=== PATIENT | male | born 1965 | race Caucasian/White ===

== ENCOUNTER 2018-07-15 14:24 | Emergency (ER) | payer SELFPAY ==
[~2018-07-15] VITALS: Ht 182.9 cm; Wt 79.4 kg
[~2018-07-15 14:24] MED LIST: PENVK500 PO
[2018-07-15] MEDS ORDERED: HYDCOR2.5C PR (17:30)
[2018-07-15] MEDS ORDERED: Colace100 MG PO (17:30)
== END 2018-07-15 17:38 | disposition home or self-care (01) ==
LOC: ER 14:24
DX: K64.4 Residual hemorrhoidal skin tags (principal); F17.200 Nicotine dependence, unspecified, uncomplicated
CPT/HCPCS: 99282

== ENCOUNTER 2020-09-13 20:14 | Observation (INO) | payer OTHER ==
[~2020-09-13] VITALS: Ht 182.9 cm; Wt 88.5 kg
[~2020-09-13 20:14] MED LIST changes: +Colace100 MG PO; +HYDCOR2.5C PR
[2020-09-13 20:48] LABS: BASOPHILS ABSOLUTE AUTO 0.03 K/mm3 (0.00-0.23); BASOPHILS PERCENT AUTO 0 % (0-2); EOSINOPHILS ABSOLUTE AUTO 0.04 K/mm3 (0.00-0.68); EOSINOPHILS PERCENT AUTO 1 % (0-6); Hematocrit 49.2 % (37.0-53.0); Hemoglobin 16.8 g/dL (13.5-17.5); IMMATURE GRAN ABSOLUTE AUTO 0.02 K/mm3 (0.00-0.10); IMMATURE GRAN PERCENT AUTO 0 % (0-1); LYMPHOCYTES PERCENT AUTO 21 % (21-46); MONOCYTES ABSOLUTE AUTO 0.57 K/mm3 (0.16-1.47); MONOCYTES PERCENT AUTO 7 % (4-13); Mean Corpuscular HGB 29.5 pg (26.0-34.0); Mean Corpuscular HGB Conc 34.1 g/dL (31.5-36.5); Mean Corpuscular Volume 87 fL (80-100); Mean Platelet Volume 9.6 fL (9.1-12.4); NEUTROPHILS ABSOLUTE AUTO 5.74 K/mm3 (1.96-9.15); NEUTROPHILS PERCENT AUTO 71 % (41-73); Platelet Count 297 K/mm3 (150-400); RDW Coefficient Variation 12.2 % (11.7-14.2); RDW Standard Deviation 38.8 fL (35.1-46.3); Red Blood Cell Count 5.69 M/mm3 (4.30-5.90)
[2020-09-13 21:11] LABS: Troponin I 0.041 ng/mL (0.000-0.040)
[2020-09-13 21:13] LABS: Alanine Aminotransfer (ALT/SGP 42 U/L (12-78); Albumin/Globulin Ratio 0.9 (0.8-1.8); Alk Phos 105 U/L (50-136); Anion Gap 5 mmol/L (6-16); Aspartate Aminotrans (AST/SGOT 15 U/L (12-37); Bilirubin, Total 0.3 mg/dL (0.1-1.0); Blood Urea Nitrogen 20 mg/dL (8-24); Bun/Creatinine Ratio 19.4 (12.0-20.0); CO2, Blood 31 mmol/L (21-32); Calcium, Blood 10.5 mg/dL (8.5-10.1); Chloride, Blood 100 mmol/L (98-108); Creatinine, Blood 1.03 mg/dL (0.60-1.20); Globulin, Blood 4.3 g/dL (2.2-4.0); Glomerular Filtration Rate >60 (60-); Glucose, Blood 214 mg/dL (70-99); Potassium, Blood 4.1 mmol/L (3.5-5.5); Sodium, Blood 136 mmol/L (136-145); Total Protein, Blood 8.3 g/dL (6.4-8.2)
[2020-09-14 03:36] LABS: Anion Gap 4 mmol/L (6-16); Blood Urea Nitrogen 22 mg/dL (8-24); Bun/Creatinine Ratio 22.2 (12.0-20.0); CO2, Blood 28 mmol/L (21-32); Chloride, Blood 102 mmol/L (98-108); Creatinine, Blood 0.99 mg/dL (0.60-1.20); Glomerular Filtration Rate >60 (60-); Glucose, Blood 271 mg/dL (70-99); Potassium, Blood 4.8 mmol/L (3.5-5.5); Sodium, Blood 134 mmol/L (136-145); Troponin I 0.039 ng/mL (0.000-0.040)
[2020-09-14 07:01] LABS: U Amphetamine Screen Not Detected; U Barbituate Screen Not Detected; U Benzodiazapine Screen Not Detected; U Buprenorphine Screen Not Detected; U Cannabinoids Screen DETECTED; U Cocaine Screen Not Detected; U Methadone Screen Not Detected; U Methamphetamine Screen DETECTED; U Opiates Screen DETECTED; U Oxycodone Screen Not Detected; U Phencyclidine Screen Not Detected; U Propoxyphene Screen Not Detected
--- NOTE | 2020-09-14 08:00 | NUR ---
INITIAL ASSESSMENT: PATIENT IS AWAKE AND SITTING UP IN BED AFTER RETURNING FROM THE BATHROOM. PT STATES HE IS HAVING 7/10 BACK PAIN. HE HAS INTERMITTENT FACIAL GRIMACING, HE EXPLAINS THE PAIN A CRAMPING. DR. GOLDBERG CALLED TO GET ORDERS FOR PAIN MEDICINE, SEE NEW ORDERS. HRR. LS CTA. BT+. PPP. VSS. PT DENIES CP AT THIS TIME. PT DENIES OTHER NEEDS AT THIS TIME. CALL LIGHT IN REACH, WILL CONTINUE TO MONITOR.
--- NOTE | 2020-09-14 09:30 | NUR ---
DR. REED IS HERE TO SEE THE PATIENT. REPORT GIVEN TO ADÁN DIAZ.
--- NOTE | 2020-09-14 12:46 | NUR ---
Assumed care of this Pt this morning at 9 am. He is A/o x 4. He reports a "crick" in his neck and was assisted to re-position with pillows. Dr James was at this bedside this morning and reports that cardio will continue to monitor at this time with no intervention. Pt is able to make his needs known and calls for help when needed.
--- NOTE | 2020-09-14 18:01 | NUR ---
Shift Summary Pt is A/o x 4 with no c/o pain. He does report a stiff neck and was using an ice pack. The flexeril was offered but he said that it didnt help this morning. BPs have improved. Pt has been up to the chair for meals. He is visiting with a friend now and eating dinner. His CBGS have been elevated and has been covered with sliding scale. Pt makes his needs known and calls when needed.
--- NOTE | 2020-09-15 05:23 | NUR ---
SHIFT SUMMARY PATIENT IS ALERT AND ORIENTED X4. INDEPENDENT IN ROOM. MEDICATED PATIENT FOR SEVER NECK/SHOULDER PAIN PER EMAR. FENTANYL SEEMS TO MAKE THE PATIENT NAUSEOUS, PATIENT VOMITTED, ZOFRAN GIVEN AND PATIENT NOW RESTING. 02 SATS >95% ON RA. VSS, NO ACUTE CHANGES, CALL LIGHT IN REACH.
[2020-09-15] MEDS ORDERED: CLON.1 PO (11:19)
[2020-09-15] MEDS ORDERED: CYCL10 PO (11:20)
[2020-09-15] MEDS ORDERED: LISI20 PO (11:21)
[2020-09-15] MEDS ORDERED: OXYC5 PO (11:22)
--- NOTE | 2020-09-15 11:44 | NUR ---
PT DISHCARGE PT'S MEDICATIONS FAXED TO PREFERRED PHARMACY. PT'S HARD COPY OF PAIN MEDICATIONS PROVIDED IN DISCHARGE PACKET. PT PROVIDED WITH EDUCATION REGARDING NEW MEDICATIONS AND FOLLOW UP APT DATES. PT ANXIOUS AND WANTING TO LEAVE [facility]. IV REMOVED. TELE REMOVED. PT'S VS STABLE. PT BROUGHT BY WHEELCHAIR TO [facility] WITH ALL BELONGINGS BY JACKER FEEDER.
== END 2020-09-15 11:39 | disposition home or self-care (01) ==
LOC: ER 20:14 → PCU 20:15 → ERHOLD 20:15 → PCU 09-14 02:24
PROVIDERS: Physician Assistant; ADMIT Family Medicine
DX: I16.0 Hypertensive urgency (principal); I16.1 Hypertensive emergency; R91.8 Other nonspecific abnormal finding of lung field; I21.4 Non-ST elevation (NSTEMI) myocardial infarction; M25.511 Pain in right shoulder; I11.9 Hypertensive heart disease without heart failure; R07.89 Other chest pain; E11.9 Type 2 diabetes mellitus without complications; F12.11 Cannabis abuse, in remission; F15.11 Other stimulant abuse, in remission; R79.89 Other specified abnormal findings of blood chemistry; F17.210 Nicotine dependence, cigarettes, uncomplicated; M54.9 Dorsalgia, unspecified; G89.29 Other chronic pain; K21.9 Gastro-esophageal reflux disease without esophagitis; M47.815 Spondylosis without myelopathy or radiculopathy, thoracolumbar region; K40.90 Unilateral inguinal hernia, without obstruction or gangrene, not specified as recurrent; M50.322 Other cervical disc degeneration at C5-C6 level
CPT/HCPCS: 36415; 71275; 74175; 80048; 80053; 82947; 83036; 83690; 84484; 85025; 93005; 93010; 93306; 96372; 96374; 96375; 96376; 99285-25; A9270; G0378; J0360; J1644; J1815; J2270; J2405; J3010; Q9967

== ENCOUNTER 2021-04-30 04:05 | Observation (INO) | payer OTHER ==
[~2021-04-30] VITALS: Ht 180.3 cm; Wt 70.9 kg
[~2021-04-30 04:05] MED LIST changes: +CLON.1 PO; +CYCL10 PO; +LISI20 PO; +OXYC5 PO
[2021-04-30 04:36] LABS: BASOPHILS ABSOLUTE AUTO 0.04 K/mm3 (0.00-0.23); BASOPHILS PERCENT AUTO 0 % (0-2); EOSINOPHILS ABSOLUTE AUTO 0.03 K/mm3 (0.00-0.68); EOSINOPHILS PERCENT AUTO 0 % (0-6); Hematocrit 45.4 % (37.0-53.0); Hemoglobin 15.3 g/dL (13.5-17.5); IMMATURE GRAN ABSOLUTE AUTO 0.01 K/mm3 (0.00-0.10); IMMATURE GRAN PERCENT AUTO 0 % (0-1); LYMPHOCYTES ABSOLUTE AUTO 1.37 K/mm3 (0.84-5.20); LYMPHOCYTES PERCENT AUTO 13 % (21-46); MONOCYTES ABSOLUTE AUTO 0.56 K/mm3 (0.16-1.47); MONOCYTES PERCENT AUTO 5 % (4-13); Mean Corpuscular HGB 29.4 pg (26.0-34.0); Mean Corpuscular HGB Conc 33.7 g/dL (31.5-36.5); Mean Corpuscular Volume 87 fL (80-100); Mean Platelet Volume 10.3 fL (9.1-12.4); NEUTROPHILS ABSOLUTE AUTO 8.38 K/mm3 (1.96-9.15); NEUTROPHILS PERCENT AUTO 81 % (41-73); Platelet Count 320 K/mm3 (150-400); RDW Coefficient Variation 12.2 % (11.7-14.2); RDW Standard Deviation 39.6 fL (35.1-46.3); White Blood Cell Count 10.39 K/mm3 (4.00-11.30)
[2021-04-30 04:53] LABS: Alanine Aminotransfer (ALT/SGP 21 U/L (12-78); Albumin, Blood 3.6 g/dL (3.4-5.0); Albumin/Globulin Ratio 0.9 (0.8-1.8); Alk Phos 99 U/L (50-136); Anion Gap 7 mmol/L (6-16); Aspartate Aminotrans (AST/SGOT 13 U/L (12-37); Bilirubin, Total 0.7 mg/dL (0.1-1.0); Blood Urea Nitrogen 18 mg/dL (8-24); Bun/Creatinine Ratio 19.4 (12.0-20.0); CO2, Blood 27 mmol/L (21-32); Calcium, Blood 9.5 mg/dL (8.5-10.1); Chloride, Blood 103 mmol/L (98-108); Creatinine, Blood 0.93 mg/dL (0.60-1.20); Globulin, Blood 4.1 g/dL (2.2-4.0); Glomerular Filtration Rate >60 (60-); Glucose, Blood 217 mg/dL (70-99); Potassium, Blood 3.9 mmol/L (3.5-5.5); Sodium, Blood 137 mmol/L (136-145); Total Protein, Blood 7.7 g/dL (6.4-8.2)
[2021-04-30 06:15] LABS: CHOL/HDL RATIO 3.2; Cholesterol 167 mg/dL (50-200); HDL Cholesterol 52 mg/dL (>39); LDL/HDL RATIO 1.9; Low Density Lipoprotein Chol 101 mg/dL (0-110); Triglycerides 71 mg/dL (30-160); Very Low Density Lipoprot Chol 14 mg/dL (6-32)
[2021-04-30 06:35] LABS: International Normalized Ratio 1.03; Prothrombin Time Results 10.8 Sec (9.7-11.5)
--- NOTE | 2021-04-30 08:00 | NUR ---
ICU ADMISSION: PT ARRIVES ADMIT FROM THE ED. OVER THE PAST x2 DAYS, PT REPORTED WORSENING MID STERNAL CP W/OUT KNOWN PRECIPITATING EVENT. YESTERDAY, HE BEGAN TO HAVE SOB & N/V WHICH PROMPTED HIS ARRIVAL TO THE ED. HE WAS GIVEN 325mg ASA & INTRANASAL NITRO EN ROUTE & UPON ARRIVAL, HIS CP HAD RESOLVED. TROP ELEVATED & PT ADMITTED NONSTEMI, PCU STATUS. UPON ARRIVAL TO ICU, PT IS SPEAKING IN FULL SENTENCES, RR EVEN & UNLABORED. APPROPRIATE & PARTICIPATES IN ASSESSMENTS. CONT MILLER HEAD ASSISTANT WET PROCESS INDICATES A SINUS RHYTHM W/ LBBB, RATE 70s. PT DENIES ANY CP. HEPARIN BOLUS GIVEN & gtt STARTED @ 15u/kg/hr. MILLER HEAD ASSISTANT WET PROCESS APPEARED TO HAVE NEW ST ELEVATION. EKG OBTAINED & APPEARED SIMILIAR & UNCHANGED FROM PREVIOUS & W/OUT ST ELEVATION. CARDIO, MAKENZIE, CONSULTED; AWAITING HER ARRIVAL TO DICTATE FURTHER PLAN OF CARE. PT IS AGREEABLE & QUICKLY FALLS ASLEEP WHEN UNDISTURBED.
--- NOTE | 2021-04-30 09:36 | NUR ---
UPDATE: PT ADDS HE HAS AN EXTENSIVE Hx OF HTN & ANGINA BUT DOES NOT TAKE ANY OF THE Rx'd MEDS @ HOME D/T SIDE EFFECTS OF FEELING "SHITTY". HOWEVER PT STS, 1wk AGO HIS BROTHER FROM HEART DISEASE & HE IS MORE RECEPTIVE NOW TO TAKING MEDS & QUITTING SMOKING. EDUCATED PT ON THE IMPORTANCE OF TAKING MEDS Rx'd & DISCUSSING SIDE EFFECTS W/ PCP IN ORDER TO FIND THE BEST MEDICATIONS & DOSE FOR HIM. UNDERSTANDING VERB. PT APPEARS RECEPTIVE & ASKS QUESTIONS, QUESTIONS ANSWERED. HE DOES STATE EXPLICITLY THAT HE DOES NOT WANT TO BE RESUSCITATED BECAUSE HE DOES NOT WANT TO BE BROUGHT BACK "HALF ALIVE" & HAVE A POOR QUALITY OF LIFE. DNR BAND PLACE ON L WRIST, ON DOOR, & IN CHART. EHR MATCHES CODE STATUS.
--- NOTE | 2021-04-30 13:20 | NUR ---
UPDATE: MECHANICAL APPRENTICE EVAL & PLAN FOR DC HOME DR BANEGAS @ BEDSIDE FOR INITIAL EVAL. PT CONTINUES TO REMAIN FREE OF CP OR SOB. HR 70s, NSR. PT AGREES TO F/U OUTPATIENT FOR STRESS TEST. MD EDUCATED PT ON THE IMPORTANCE OF RETURNING FOR F/U & BEING COMPLIANT W/ MEDS, PT AGREES. MAKENZIE BELIEVES THE PT CAN BE DC'd HOME TODAY. VERBAL ORDERS GIVEN TO DC HEPARIN GTT. PLAN TO KEEP PT OBS THIS AFTERNOON & DC HOME AFTER PTT CONFIRMED TO BE TRENDING DOWNWARDS.
--- NOTE | 2021-04-30 15:54 | NUR ---
SPOKE W/ CARRIE BANEGAS TO DRAW PTT NOW & IF IT IS NML OR CLOSE TO NML, PT WILL BE ABLE TO BE DC HOME. ORDER PLACED, AWAITING SLASHER OPERATOR ARRIVAL. PT CONTINUES TO REMAIN FREE OF CP & HAS BEEN ABLE TO BE INDEPENDENT IN THE ROOM.
[2021-04-30] MEDS ORDERED: NITR.4SL (17:08)
[2021-04-30] MEDS ORDERED: TAMSULOSIN HCL0.4 M1 PO (17:10)
[2021-04-30] MEDS ORDERED: ATOR40TA PO (17:11)
[2021-04-30] MEDS ORDERED: Isosorbide Mono30 MG PO (17:11)
[2021-04-30] MEDS ORDERED: ASPI81CH PO (17:11)
[2021-04-30] MEDS ORDERED: METF500 PO (17:12)
[2021-04-30] MEDS ORDERED: Prinivil10 MG PO (17:12)
--- NOTE | 2021-04-30 17:45 | NUR ---
UPDATE: PT DC HOME. PT GIVEN THOROUGH WRITTEN & VERBAL DC INSTRUCTIONS ON THE IMPORTANCE OF DIET, MED COMPLIANCE, & FOLLOWING UP W/ PCP. OPPORTUNITY PROVIDED FOR QUESTIONS & QUESTIONS ANSWERED. PT VERB UNDERSTANDING & DENIES ANY UNMET NEEDS. IV DC'd. ESCORTED TO [facility] W/OUT INCIDENT. BERNARD.
== END 2021-04-30 17:45 | disposition home or self-care (01) ==
LOC: ER 04:05 → PCU 04:06 → ICUE 04:06
PROVIDERS: Student in an Organized Health Care Education/Training Program; ADMIT Family Medicine
DX: R07.2 Precordial pain (principal); I44.7 Left bundle-branch block, unspecified; I10 Essential (primary) hypertension; F17.210 Nicotine dependence, cigarettes, uncomplicated; F15.10 Other stimulant abuse, uncomplicated; E11.9 Type 2 diabetes mellitus without complications; K21.9 Gastro-esophageal reflux disease without esophagitis; Z91.14 Patient's other noncompliance with medication regimen; Z66 Do not resuscitate
CPT/HCPCS: 36415; 71045; 80053; 80061; 82947; 83690; 84484; 85025; 85520; 85610; 85730; 93005; 93010; 96376; A9270; G0378; J1644; J1815; J2405

== ENCOUNTER 2021-07-22 09:38 | Emergency (ER) | payer OTHER ==
[~2021-07-22] VITALS: Ht 180.3 cm; Wt 72.6 kg
[~2021-07-22 09:38] MED LIST changes: +ASPI81CH PO; +ATOR40TA PO; +Isosorbide Mono30 MG PO; +METF500 PO; +METO25 PO; +NITR.4SL SL; +Nicoderm Cq1 EAC1 TOP; +PANT40 PO; +Prinivil10 MG PO; +TAMSULOSIN HCL0.4 M1 PO
[2021-07-22 10:25] LABS: BASOPHILS ABSOLUTE AUTO 0.05 K/mm3 (0.00-0.23); BASOPHILS PERCENT AUTO 0 % (0-2); EOSINOPHILS ABSOLUTE AUTO 0.01 K/mm3 (0.00-0.68); EOSINOPHILS PERCENT AUTO 0 % (0-6); Hematocrit 52.7 % (37.0-53.0); Hemoglobin 17.7 g/dL (13.5-17.5); IMMATURE GRAN ABSOLUTE AUTO 0.03 K/mm3 (0.00-0.10); IMMATURE GRAN PERCENT AUTO 0 % (0-1); LYMPHOCYTES ABSOLUTE AUTO 1.41 K/mm3 (0.84-5.20); LYMPHOCYTES PERCENT AUTO 12 % (21-46); MONOCYTES PERCENT AUTO 5 % (4-13); Mean Corpuscular HGB 29.6 pg (26.0-34.0); Mean Corpuscular HGB Conc 33.6 g/dL (31.5-36.5); Mean Corpuscular Volume 88 fL (80-100); Mean Platelet Volume 9.9 fL (9.1-12.4); NEUTROPHILS ABSOLUTE AUTO 9.67 K/mm3 (1.96-9.15); NEUTROPHILS PERCENT AUTO 82 % (41-73); Platelet Count 338 K/mm3 (150-400); RDW Coefficient Variation 12.4 % (11.7-14.2); RDW Standard Deviation 40.4 fL (35.1-46.3); Red Blood Cell Count 5.98 M/mm3 (4.30-5.90); White Blood Cell Count 11.77 K/mm3 (4.00-11.30)
[2021-07-22 10:41] LABS: Alanine Aminotransfer (ALT/SGP 28 U/L (12-78); Albumin, Blood 3.9 g/dL (3.4-5.0); Albumin/Globulin Ratio 0.9 (0.8-1.8); Alk Phos 111 U/L (50-136); Anion Gap 7 mmol/L (6-16); Aspartate Aminotrans (AST/SGOT 12 U/L (12-37); Bilirubin, Total 0.7 mg/dL (0.1-1.0); Blood Urea Nitrogen 23 mg/dL (8-24); Bun/Creatinine Ratio 29.7 (12.0-20.0); CO2, Blood 29 mmol/L (21-32); Calcium, Blood 9.4 mg/dL (8.5-10.1); Chloride, Blood 99 mmol/L (98-108); Creatinine, Blood 0.78 mg/dL (0.60-1.20); Globulin, Blood 4.2 g/dL (2.2-4.0); Glomerular Filtration Rate >60 (60-); Glucose, Blood 181 mg/dL (70-99); Potassium, Blood 4.5 mmol/L (3.5-5.5); Sodium, Blood 135 mmol/L (136-145); Total Protein, Blood 8.1 g/dL (6.4-8.2)
[2021-07-22 11:29] LABS: Source, Urine Clean Catch
[2021-07-22 11:49] LABS: Appearance, Urine Clear (Clear); Bilirubin, Urine Neg (Neg); Blood, Urine Neg (Neg); Color, Urine Yellow (P-Yellow); Glucose Qualitative, Urine Neg (Neg); Ketones, Urine 4+ (Neg); Leukocyte Esterase, Urine Neg (Neg); Nitrite, Urine Neg (Neg); Protein, Urine 3+ (Neg); Urobilinogen, Urine 1+ (Normal)
[2021-07-22 12:12] LABS: U Amphetamine Screen DETECTED; U Barbituate Screen Not Detected; U Benzodiazapine Screen Not Detected; U Buprenorphine Screen Not Detected; U Cannabinoids Screen DETECTED; U Cocaine Screen Not Detected; U Methadone Screen Not Detected; U Methamphetamine Screen DETECTED; U Opiates Screen Not Detected; U Oxycodone Screen Not Detected; U Phencyclidine Screen Not Detected; U Propoxyphene Screen Not Detected
[2021-07-22 12:18] LABS: Bacteria Not Seen /hpf; Red Blood Cells, Urine 0-2 /hpf (0-2); Squamous Epithelial Cells Rare /hpf (Few); White Blood Cells, Urine 0-2 /hpf (0-5)
== END 2021-07-22 13:02 | disposition home or self-care (01) ==
LOC: ER 09:38
PROVIDERS: Emergency Medicine
DX: K29.90 Gastroduodenitis, unspecified, without bleeding (principal); F15.90 Other stimulant use, unspecified, uncomplicated; I10 Essential (primary) hypertension; E11.9 Type 2 diabetes mellitus without complications; E78.5 Hyperlipidemia, unspecified; F17.210 Nicotine dependence, cigarettes, uncomplicated; Z79.82 Long term (current) use of aspirin; Z79.899 Other long term (current) drug therapy; Z79.84 Long term (current) use of oral hypoglycemic drugs
CPT/HCPCS: 36415; 71045; 74177; 80053; 81001; 83690; 84484; 85025; 93005; 93010; C9113; J1170; J2405; J7030; Q9967

== ENCOUNTER 2023-03-10 15:26 | Emergency (ER) | payer OTHER ==
[~2023-03-10] VITALS: Ht 177.8 cm; Wt 81.7 kg
[2023-03-10 15:42] LABS: BASOPHILS ABSOLUTE AUTO 0.04 K/mm3 (0.00-0.23); BASOPHILS PERCENT AUTO 1 % (0-2); EOSINOPHILS ABSOLUTE AUTO 0.12 K/mm3 (0.00-0.68); EOSINOPHILS PERCENT AUTO 2 % (0-6); Hematocrit 44.2 % (37.0-53.0); Hemoglobin 15.4 g/dL (13.5-17.5); IMMATURE GRAN ABSOLUTE AUTO 0.02 K/mm3 (0.00-0.10); IMMATURE GRAN PERCENT AUTO 0 % (0-1); LYMPHOCYTES ABSOLUTE AUTO 2.07 K/mm3 (0.84-5.20); LYMPHOCYTES PERCENT AUTO 26 % (21-46); MONOCYTES ABSOLUTE AUTO 0.45 K/mm3 (0.16-1.47); MONOCYTES PERCENT AUTO 6 % (4-13); Mean Corpuscular HGB 29.8 pg (26.0-34.0); Mean Corpuscular HGB Conc 34.8 g/dL (31.5-36.5); Mean Corpuscular Volume 86 fL (80-100); Mean Platelet Volume 9.9 fL (9.1-12.4); NEUTROPHILS ABSOLUTE AUTO 5.23 K/mm3 (1.96-9.15); NEUTROPHILS PERCENT AUTO 66 % (41-73); Platelet Count 286 K/mm3 (150-400); RDW Coefficient Variation 11.9 % (11.7-14.2); RDW Standard Deviation 37.1 fL (35.1-46.3); Red Blood Cell Count 5.17 M/mm3 (4.30-5.90); White Blood Cell Count 7.93 K/mm3 (4.00-11.30)
[2023-03-10 16:00] LABS: Albumin, Blood 3.6 g/dL (3.4-5.0); Bilirubin, Total 0.6 mg/dL (0.1-1.0); Bun/Creatinine Ratio 20.8 (12.0-20.0); Creatinine, Blood 0.82 mg/dL (0.60-1.20); Globulin, Blood 3.7 g/dL (2.2-4.0); Potassium, Blood 3.9 mmol/L (3.5-5.5); Total Protein, Blood 7.3 g/dL (6.4-8.2)
[2023-03-10 17:00] VITALS: BP 180/106
[2023-03-10] MEDS ORDERED: ONDA4ODT MM (17:05)
[2023-03-10] MEDS ORDERED: Pepcid40 MG PO (17:05)
== END 2023-03-10 17:11 | disposition home or self-care (01) ==
LOC: ER 15:26
PROVIDERS: Emergency Medicine
DX: R10.11 Right upper quadrant pain (principal); I10 Essential (primary) hypertension; E11.9 Type 2 diabetes mellitus without complications; E78.5 Hyperlipidemia, unspecified; F15.10 Other stimulant abuse, uncomplicated; N40.0 Benign prostatic hyperplasia without lower urinary tract symptoms; Z87.19 Personal history of other diseases of the digestive system; F17.210 Nicotine dependence, cigarettes, uncomplicated
CPT/HCPCS: 80053; 83690; 85025; 93005; 93010; 99284-25; J1885; J2405

== ENCOUNTER 2023-04-06 23:16 | Inpatient (IN) | payer OTHER ==
[~2023-04-06] VITALS: Ht 182.9 cm; Wt 72.7 kg
[~2023-04-06 23:16] MED LIST changes: +ONDA4ODT MM; +Pepcid40 MG PO
[2023-04-07 00:01] LABS: BASOPHILS ABSOLUTE AUTO 0.05 K/mm3 (0.00-0.23); BASOPHILS PERCENT AUTO 1 % (0-2); EOSINOPHILS ABSOLUTE AUTO 0.16 K/mm3 (0.00-0.68); EOSINOPHILS PERCENT AUTO 2 % (0-6); Hematocrit 43.6 % (37.0-53.0); Hemoglobin 15.1 g/dL (13.5-17.5); IMMATURE GRAN ABSOLUTE AUTO 0.03 K/mm3 (0.00-0.10); IMMATURE GRAN PERCENT AUTO 0 % (0-1); LYMPHOCYTES ABSOLUTE AUTO 2.07 K/mm3 (0.84-5.20); LYMPHOCYTES PERCENT AUTO 21 % (21-46); MONOCYTES ABSOLUTE AUTO 0.66 K/mm3 (0.16-1.47); MONOCYTES PERCENT AUTO 7 % (4-13); Mean Corpuscular HGB 29.7 pg (26.0-34.0); Mean Corpuscular HGB Conc 34.6 g/dL (31.5-36.5); Mean Corpuscular Volume 86 fL (80-100); Mean Platelet Volume 9.8 fL (9.1-12.4); NEUTROPHILS ABSOLUTE AUTO 7.15 K/mm3 (1.96-9.15); NEUTROPHILS PERCENT AUTO 71 % (41-73); Platelet Count 289 K/mm3 (150-400); RDW Standard Deviation 37.8 fL (35.1-46.3); Red Blood Cell Count 5.09 M/mm3 (4.30-5.90); White Blood Cell Count 10.12 K/mm3 (4.00-11.30)
[2023-04-07 00:20] LABS: Albumin, Blood 3.7 g/dL (3.4-5.0); Bilirubin, Total 0.5 mg/dL (0.1-1.0); Bun/Creatinine Ratio 28.1 (12.0-20.0); Calcium, Blood 9.8 mg/dL (8.5-10.1); Creatinine, Blood 0.89 mg/dL (0.60-1.20); Globulin, Blood 3.8 g/dL (2.2-4.0); Total Protein, Blood 7.5 g/dL (6.4-8.2)
[2023-04-07 03:49] LABS: CHOL/HDL RATIO 3.8; Cholesterol 184 mg/dL (50-200); HDL Cholesterol 48 mg/dL (>39); LDL/HDL RATIO 2.3; Low Density Lipoprotein Chol 113 mg/dL (0-110); Triglycerides 117 mg/dL (30-160); Very Low Density Lipoprot Chol 23 mg/dL (6-32)
[2023-04-07 07:18] VITALS: BP 157/84
--- NOTE | 2023-04-07 07:41 | NUR ---
LAB CALLED WITH A CRITICAL VALUE OF A TROPONIN OF 213, PREVIOUSLY 192, AND 218 PRIOR TO THAT. CALL AND REPORTED RESULT TO DR. RAMOS. NO NEW ORDERS GIVEN OVER THE PHONE.
[2023-04-07 07:58] LABS: Source, Urine Clean Catch
[2023-04-07 08:04] LABS: Bilirubin, Urine Neg (Neg); Blood, Urine Neg (Neg); Glucose Qualitative, Urine 4+ (Neg); Ketones, Urine 1+ (Neg); Leukocyte Esterase, Urine Neg (Neg); Nitrite, Urine Neg (Neg); Protein, Urine 2+ (Neg); Urobilinogen, Urine NORM (Normal)
[2023-04-07 08:11] LABS: Appearance, Urine Clear (Clear); Color, Urine Yellow (P-Yellow)
[2023-04-07 08:16] LABS: Bacteria Rare /hpf; Red Blood Cells, Urine 0-2 /hpf (0-2); Squamous Epithelial Cells Rare /hpf (Few); White Blood Cells, Urine 0-2 /hpf (0-5)
--- NOTE | 2023-04-07 08:28 | NUR ---
TELEMETRY CALLED AT [address] ELEVATION OF 3.9 PATIENT IS ASYMPTOMATIC (NO SOB OR CHEST PAIN) EKG WAS PERFORMED AND COMPARED TO PREVIOUS. RESULTS REPORTED TO DR. RAMOS.
--- NOTE | 2023-04-07 11:18 | NUR ---
LAB CALLED WITH CRITICAL RESULTS: TROPONIN OF 200; PREVIOUSLY 213. CALL AND NOTIFIED
[2023-04-07 16:14] VITALS: BP 129/82
[2023-04-07] MEDS ORDERED: BUPR150ER PO (17:52)
[2023-04-07] MEDS ORDERED: STEGLATRO5 MG PO (17:52)
[2023-04-07] MEDS ORDERED: METO25ER PO (17:53)
[2023-04-07] MEDS ORDERED: Naltrexone HCl50 MG PO (17:53)
[2023-04-07] MEDS ORDERED: LOSA25 PO (17:53)
--- NOTE | 2023-04-07 18:27 | NUR ---
DISCHARGE NOTE: DISCHARGE DISCUSSED WITH PATIENT BY MD AND RN AT BEDSIDE. DISCHARGE PAPERWORK AND SUPPLIES TO OBTAIN STOOL TEST PROVIDED. QUESTIONS AND CONCERNS ANSWERED. IV AND TELEMETRY REMOVED. PATIENT GOT DRESSED AND COLLECTED HIS OWN BELONGINGS AND WALKOUT OUT OF UNIT WITH STAFF. NO SIGNS OR SYMPTOMS OF DISTRESS DURING DISCHARGE.
== END 2023-04-07 18:19 | disposition home or self-care (01) | DRG 391 ==
LOC: ER 23:16 → MEDS 04-07 03:26
PROVIDERS: Emergency Medicine; Family Medicine; ADMIT Student in an Organized Health Care Education/Training Program
DX: K29.80 Duodenitis without bleeding (principal); I21.A1 Myocardial infarction type 2; I50.22 Chronic systolic (congestive) heart failure; E11.9 Type 2 diabetes mellitus without complications; Z66 Do not resuscitate; Q63.2 Ectopic kidney; F15.10 Other stimulant abuse, uncomplicated; F17.210 Nicotine dependence, cigarettes, uncomplicated; I11.0 Hypertensive heart disease with heart failure; N40.0 Benign prostatic hyperplasia without lower urinary tract symptoms; K29.70 Gastritis, unspecified, without bleeding; E78.5 Hyperlipidemia, unspecified; I44.7 Left bundle-branch block, unspecified; R94.31 Abnormal electrocardiogram [ECG] [EKG]; Z91.148 Patient's other noncompliance with medication regimen for other reason; Z79.899 Other long term (current) drug therapy; Z90.89 Acquired absence of other organs
CPT/HCPCS: 36415; 71045; 71275; 74177; 76705; 80053; 80061; 81001; 82947; 83036; 83690; 83735; 83880; 84484; 85025; 93005; 93010; 93306; 94762; 96361; 96374-59; 96375-59; 99285-25; A9270; J1650; J2270; J2405; J7030; Q9967

== ENCOUNTER → 2023-04-09 | Outpatient (CLI) | payer OTHER ==
[~2023-04-09] MED LIST changes: +BUPR150ER PO; +LOSA25 PO; +METO25ER PO; +Naltrexone HCl50 MG PO; +STEGLATRO5 MG PO; +SUCR1 PO
== END | disposition home or self-care (01) ==
LOC: LAB SHORT 14:08 → LAB 14:08
DX: K29.80 Duodenitis without bleeding (principal)
CPT/HCPCS: 87338

== ENCOUNTER 2023-04-10 19:02 | Emergency (ER) | payer OTHER ==
[~2023-04-10] VITALS: Ht 180.3 cm; Wt 71.2 kg
[~2023-04-10 19:02] MED LIST changes: -SUCR1 PO
[2023-04-10 19:28] LABS: BASOPHILS ABSOLUTE AUTO 0.07 K/mm3 (0.00-0.23); BASOPHILS PERCENT AUTO 1 % (0-2); EOSINOPHILS ABSOLUTE AUTO 0.13 K/mm3 (0.00-0.68); EOSINOPHILS PERCENT AUTO 2 % (0-6); Hematocrit 42.4 % (37.0-53.0); Hemoglobin 14.7 g/dL (13.5-17.5); IMMATURE GRAN ABSOLUTE AUTO 0.02 K/mm3 (0.00-0.10); IMMATURE GRAN PERCENT AUTO 0 % (0-1); LYMPHOCYTES ABSOLUTE AUTO 1.57 K/mm3 (0.84-5.20); LYMPHOCYTES PERCENT AUTO 20 % (21-46); MONOCYTES ABSOLUTE AUTO 0.58 K/mm3 (0.16-1.47); MONOCYTES PERCENT AUTO 7 % (4-13); Mean Corpuscular HGB 29.5 pg (26.0-34.0); Mean Corpuscular HGB Conc 34.7 g/dL (31.5-36.5); Mean Corpuscular Volume 85 fL (80-100); NEUTROPHILS PERCENT AUTO 71 % (41-73); Platelet Count 308 K/mm3 (150-400); RDW Coefficient Variation 12.2 % (11.7-14.2); RDW Standard Deviation 37.6 fL (35.1-46.3); Red Blood Cell Count 4.98 M/mm3 (4.30-5.90); White Blood Cell Count 8.07 K/mm3 (4.00-11.30)
[2023-04-10 19:53] LABS: Albumin, Blood 3.6 g/dL (3.4-5.0); Bilirubin, Total 0.3 mg/dL (0.1-1.0); Calcium, Blood 9.6 mg/dL (8.5-10.1); Creatinine, Blood 0.92 mg/dL (0.60-1.20); Globulin, Blood 3.7 g/dL (2.2-4.0); Potassium, Blood 3.9 mmol/L (3.5-5.5); Total Protein, Blood 7.3 g/dL (6.4-8.2)
[2023-04-10] MEDS ORDERED: PANT40 PO (22:30)
[2023-04-10] MEDS ORDERED: SUCR1 PO (22:30)
[2023-04-10 22:46] VITALS: BP 150/92
== END 2023-04-10 22:40 | disposition home or self-care (01) ==
LOC: ER 19:02
PROVIDERS: Emergency Medicine
DX: K29.80 Duodenitis without bleeding (principal); R07.9 Chest pain, unspecified; R79.89 Other specified abnormal findings of blood chemistry; F15.10 Other stimulant abuse, uncomplicated; E11.9 Type 2 diabetes mellitus without complications; I10 Essential (primary) hypertension; E78.5 Hyperlipidemia, unspecified; F17.210 Nicotine dependence, cigarettes, uncomplicated; Z79.84 Long term (current) use of oral hypoglycemic drugs; Z79.899 Other long term (current) drug therapy
CPT/HCPCS: 71045; 80053; 83690; 84484; 85025; 93005; 93010; 99285-25; A9270; C9113

== ENCOUNTER 2024-06-29 12:59 | Observation (INO) | payer OTHER ==
[~2024-06-29] VITALS: Ht 180.3 cm; Wt 74.8 kg
[~2024-06-29 12:59] MED LIST changes: +SUCR1 PO
[2024-06-29 14:49] LABS: Base Excess Venous 3.1 mmol/L; Bicarbonate Venous 26.7 mmol/L (24.0-30.0); PCO2 Venous 40.8 mmHg (38-42); pH Blood Venous 7.43 (7.34-7.37)
[2024-06-29 14:56] LABS: BASOPHILS ABSOLUTE AUTO 0.03 K/mm3 (0.00-0.23); BASOPHILS PERCENT AUTO 0 % (0-2); EOSINOPHILS ABSOLUTE AUTO 0.05 K/mm3 (0.00-0.68); EOSINOPHILS PERCENT AUTO 1 % (0-6); Hematocrit 40.3 % (37.0-53.0); Hemoglobin 13.9 g/dL (13.5-17.5); IMMATURE GRAN ABSOLUTE AUTO 0.03 K/mm3 (0.00-0.10); IMMATURE GRAN PERCENT AUTO 0 % (0-1); LYMPHOCYTES ABSOLUTE AUTO 1.02 K/mm3 (0.84-5.20); LYMPHOCYTES PERCENT AUTO 15 % (21-46); MONOCYTES ABSOLUTE AUTO 0.59 K/mm3 (0.16-1.47); MONOCYTES PERCENT AUTO 9 % (4-13); Mean Corpuscular HGB Conc 34.5 g/dL (31.5-36.5); Mean Corpuscular Volume 87 fL (80-100); Mean Platelet Volume 11.1 fL (9.1-12.4); NEUTROPHILS ABSOLUTE AUTO 4.95 K/mm3 (1.96-9.15); NEUTROPHILS PERCENT AUTO 74 % (41-73); Platelet Count 189 K/mm3 (150-400); RDW Coefficient Variation 12.4 % (11.7-14.2); RDW Standard Deviation 39.3 fL (35.1-46.3); Red Blood Cell Count 4.63 M/mm3 (4.30-5.90); White Blood Cell Count 6.67 K/mm3 (4.00-11.30)
[2024-06-29 15:32] LABS: Beta-hydroxybutyrate 2.1 mg/dL (0.2-2.8)
[2024-06-29 15:57] LABS: Albumin, Blood 3.3 g/dL (3.4-5.0); Albumin/Globulin Ratio 0.9 (0.8-1.8); Bilirubin, Total 0.3 mg/dL (0.1-1.0); Bun/Creatinine Ratio 30.5 (12.0-20.0); Calcium, Blood 8.5 mg/dL (8.5-10.1); Creatinine, Blood 0.85 mg/dL (0.60-1.20); Globulin, Blood 3.5 g/dL (2.2-4.0); Potassium, Blood 4.8 mmol/L (3.5-5.5); Total Protein, Blood 6.8 g/dL (6.4-8.2)
[2024-06-29] MEDS ORDERED: Insulin Human Regular 100 UNIT in NS 100 ML IV SCH (17:15)
[2024-06-29] MEDS ORDERED: NS 1,000 ML IV SCH (17:20)
[2024-06-29] MEDS ORDERED: Ondansetron HCl 2 MG / ML 2ML Vial IV PRN (17:40)
[2024-06-29] MEDS ORDERED: NS 1,000 ML IV ONE (17:45)
[2024-06-29 17:51] LABS: Source, Urine Clean Catch
[2024-06-29] MEDS ORDERED: Enoxaparin 40 MG/0.4 ML SYR SC SCH (18:00)
[2024-06-29 18:08] LABS: Appearance, Urine Clear (Clear); Bilirubin, Urine Neg (Neg); Blood, Urine Neg (Neg); Glucose Qualitative, Urine 4+ (Neg); Ketones, Urine Neg (Neg); Leukocyte Esterase, Urine Neg (Neg); Nitrite, Urine Neg (Neg); Protein, Urine Neg (Neg); Urobilinogen, Urine NORM (Normal)
[2024-06-29 18:40] LABS: Bun/Creatinine Ratio 28.6 (12.0-20.0); Calcium, Blood 8.4 mg/dL (8.5-10.1); Creatinine, Blood 0.77 mg/dL (0.60-1.20); Potassium, Blood 4.7 mmol/L (3.5-5.5)
[2024-06-29] MEDS ORDERED: Aspir 8181 MG PO (19:04)
[2024-06-29] MEDS ORDERED: INSULIN GL300 UNIT/1 SC (19:05)
[2024-06-29 19:09] LABS: Color, Urine Pale Yellow (P-Yellow)
[2024-06-29 19:31] LABS: Glucose, Blood 608 mg/dL (70-99)
[2024-06-29 20:14] LABS: Bun/Creatinine Ratio 25.1 (12.0-20.0); Calcium, Blood 8.2 mg/dL (8.5-10.1); Creatinine, Blood 0.84 mg/dL (0.60-1.20); Potassium, Blood 3.9 mmol/L (3.5-5.5)
[2024-06-29] MEDS ORDERED: Potassium Chl 20MEQ/Water100ML 100 ML IV ONE (20:30)
[2024-06-29] MEDS ORDERED: Insulin Glargine-Yfgn 100 Unit/mL 3 ML SYR SC SCH (23:00)
[2024-06-29 23:51] VITALS: BP 135/86
[2024-06-30 00:52] LABS: Bun/Creatinine Ratio 29.6 (12.0-20.0); Calcium, Blood 8.4 mg/dL (8.5-10.1); Creatinine, Blood 0.81 mg/dL (0.60-1.20); Potassium, Blood 4.2 mmol/L (3.5-5.5)
[2024-06-30 01:34] VITALS: BP 169/94
--- NOTE | 2024-06-30 02:21 | NUR ---
AT 0130 PUBLIC AFFAIRS SPECIALIST CALLED RN TO INFORM OF ST ELEVATION IN TELEMETRY LINES. EKG OBTAINED, PER MD ORDER. EKG READ. WAITING FOR NEW ORDERS.
[2024-06-30 05:11] VITALS: BP 138/77
[2024-06-30 05:30] LABS: BASOPHILS ABSOLUTE AUTO 0.08 K/mm3 (0.00-0.23); BASOPHILS PERCENT AUTO 1 % (0-2); EOSINOPHILS ABSOLUTE AUTO 0.15 K/mm3 (0.00-0.68); EOSINOPHILS PERCENT AUTO 2 % (0-6); Hemoglobin 12.9 g/dL (13.5-17.5); IMMATURE GRAN ABSOLUTE AUTO 0.02 K/mm3 (0.00-0.10); IMMATURE GRAN PERCENT AUTO 0 % (0-1); LYMPHOCYTES ABSOLUTE AUTO 2.11 K/mm3 (0.84-5.20); LYMPHOCYTES PERCENT AUTO 33 % (21-46); MONOCYTES ABSOLUTE AUTO 0.47 K/mm3 (0.16-1.47); MONOCYTES PERCENT AUTO 7 % (4-13); Mean Corpuscular HGB 29.6 pg (26.0-34.0); Mean Corpuscular HGB Conc 33.9 g/dL (31.5-36.5); Mean Corpuscular Volume 87 fL (80-100); Mean Platelet Volume 10.7 fL (9.1-12.4); NEUTROPHILS ABSOLUTE AUTO 3.56 K/mm3 (1.96-9.15); NEUTROPHILS PERCENT AUTO 56 % (41-73); Platelet Count 192 K/mm3 (150-400); RDW Coefficient Variation 12.6 % (11.7-14.2); RDW Standard Deviation 39.9 fL (35.1-46.3); Red Blood Cell Count 4.36 M/mm3 (4.30-5.90); White Blood Cell Count 6.39 K/mm3 (4.00-11.30)
[2024-06-30 05:57] LABS: Albumin, Blood 3.1 g/dL (3.4-5.0); Bilirubin, Total 0.4 mg/dL (0.1-1.0); Bun/Creatinine Ratio 30.7 (12.0-20.0); Calcium, Blood 8.4 mg/dL (8.5-10.1); Creatinine, Blood 0.75 mg/dL (0.60-1.20); Potassium, Blood 4.3 mmol/L (3.5-5.5); Total Protein, Blood 6.1 g/dL (6.4-8.2)
[2024-06-30 07:29] VITALS: BP 151/88
[2024-06-30] MEDS ORDERED: Insulin Human Lispro 100 Units/ML 3ML Syringe SC SCH (07:30)
[2024-06-30] MEDS ORDERED: Aspirin 81 MG TabEC PO SCH (09:00)
[2024-06-30] MEDS ORDERED: Insulin Glargine-Yfgn 100 Unit/mL 3 ML SYR SC ONE ×2 (11:00)
[2024-06-30] MEDS ORDERED: HUMALOG KW100 UNIT/1 SC (11:02)
--- NOTE | 2024-06-30 11:18 | NUR ---
PT WAS DISCHARGED BY MD WITH INSTRUCTIONS. SCRIPTS SENT TO [facility]. ALL PIVS REMOVED AND INSTRUCTIONS IN HAND
[2024-07-01] MEDS ORDERED: Insulin Glargine-Yfgn 100 Unit/mL 3 ML SYR SC SCH (09:00)
== END 2024-06-30 11:28 | disposition home or self-care (01) ==
LOC: ER 12:59 → ERHOLD 13:00 → MEDS 13:00
PROVIDERS: Emergency Medicine; Student in an Organized Health Care Education/Training Program; ADMIT Internal Medicine
DX: E11.65 Type 2 diabetes mellitus with hyperglycemia (principal); I10 Essential (primary) hypertension; E86.0 Dehydration; E78.5 Hyperlipidemia, unspecified; F17.210 Nicotine dependence, cigarettes, uncomplicated; Z79.4 Long term (current) use of insulin; Z79.899 Other long term (current) drug therapy; Z91.148 Patient's other noncompliance with medication regimen for other reason
CPT/HCPCS: 36415; 80048; 80053; 81003; 82010; 82803; 82947; 83036; 83605; 83880; 83930; 84484; 85025; 93005; 93010; 96361; 96365; 96366; 96372; 99284-25; A9270; G0378; J1650; J1815; J3480; J7030

== ENCOUNTER 2024-12-21 13:39 | Observation (INO) | payer OTHER ==
[~2024-12-21] VITALS: Ht 180.3 cm; Wt 78.8 kg
[~2024-12-21 13:39] MED LIST changes: +Aspir 8181 MG PO; +HUMALOG KW100 UNIT/1 SC; +INSULIN GL300 UNIT/1 SC
[2024-12-21 14:07] LABS: BASOPHILS ABSOLUTE AUTO 0.04 K/mm3 (0.00-0.23); BASOPHILS PERCENT AUTO 1 % (0-2); EOSINOPHILS ABSOLUTE AUTO 0.07 K/mm3 (0.00-0.68); EOSINOPHILS PERCENT AUTO 1 % (0-6); Hematocrit 43.9 % (37.0-53.0); Hemoglobin 15.3 g/dL (13.5-17.5); IMMATURE GRAN ABSOLUTE AUTO 0.02 K/mm3 (0.00-0.10); IMMATURE GRAN PERCENT AUTO 0 % (0-1); LYMPHOCYTES ABSOLUTE AUTO 1.65 K/mm3 (0.84-5.20); LYMPHOCYTES PERCENT AUTO 19 % (21-46); MONOCYTES ABSOLUTE AUTO 0.61 K/mm3 (0.16-1.47); MONOCYTES PERCENT AUTO 7 % (4-13); Mean Corpuscular HGB Conc 34.9 g/dL (31.5-36.5); Mean Corpuscular Volume 86 fL (80-100); NEUTROPHILS ABSOLUTE AUTO 6.28 K/mm3 (1.96-9.15); NEUTROPHILS PERCENT AUTO 73 % (41-73); NRBC ABSOLUTE 0.00 K/mm3 (0.00-0.02); NRBC Auto 0.0 /100 WBC (0.0-0.2); Platelet Count 247 K/mm3 (150-400); RDW Coefficient Variation 12.4 % (11.7-14.2); RDW Standard Deviation 38.9 fL (35.1-46.3)
[2024-12-21 14:22] LABS: Alanine Aminotransfer (ALT/SGP 28.0 U/L (12-78); Albumin, Blood 3.7 g/dL (3.4-5.0); Albumin/Globulin Ratio 1.1 (0.8-1.8); Anion Gap 8.0 mmol/L (3-11); Aspartate Aminotrans (AST/SGOT 10.0 U/L (12-37); Bilirubin, Total 0.6 mg/dL (0.1-1.0); Blood Urea Nitrogen 19.0 mg/dL (8-24); CO2, Blood 26.0 mmol/L (21-32); Calcium, Blood 9.7 mg/dL (8.5-10.1); Chloride, Blood 103.0 mmol/L (98-108); Creatinine, Blood 0.79 mg/dL (0.60-1.20); Globulin, Blood 3.5 g/dL (2.2-4.0); Glucose, Blood 191.0 mg/dL (70-99); Potassium, Blood 3.8 mmol/L (3.5-5.5); Sodium, Blood 133.0 mmol/L (136-145); Total Protein, Blood 7.2 g/dL (6.4-8.2)
[2024-12-21] MEDS ORDERED: Morphine Sulfate 4 MG/1 ML Injection IV ONE (16:00)
[2024-12-21] MEDS ORDERED: FLU VACC TS2025-26(6MOS UP)/PF 45 MCG/0.5 ML SYRINGE IM SCH (17:00)
[2024-12-21] MEDS ORDERED: Mag Hydrox/Al Hydrox/Simeth 18 ML,Lidocaine 2% Viscous Soln 9 ML,Atropine/Scopalam/Hyos... PO PRN (17:55)
[2024-12-21 19:18] VITALS: BP 147/87
[2024-12-21 23:44] VITALS: BP 139/90
[2024-12-22 03:38] VITALS: BP 141/78
--- NOTE | 2024-12-22 03:58 | NUR ---
SHIFT SUMMARY: PATIENT IS A&OX4. PER DIRECTOR OF PRODUCT DESIGN 3Nod PATIENTS TELE SHOWS SINUS RHYTHM WITH A BBBAND ST DEPRESSION WITH HR BETWEEN 60'S-70'S BPM. EARLIER IN THE SHIFT, PATIENT WAS STATING "I HAVE A "SOUR" STOMACH.." IN WHICH PATIENT WAS GIVEN PO GI COCKTAIL PER MAY. SINCE GI COCKTAIL WAS GIVEN PATIENT HAS DENIED HAVING A "SOUR" STOMACH. PATIENT HAS DENIED CHEST PAIN, PALPATATIONS, OR PRESSURE THROUGHOUT SHIFT. PATIENT IS TOLERATING PO INTAKE AND IS VOIDING VIA URINAL AT BEDSIDE AND HAD A UNMEASURED VOID WHEN HE SHOWERED EARLIER IN THE SHIFT. PATIENT IS CURRENTLY LAYING IN BED WITH CALL LIGHT IN REACH. PATIENT CALLS APPROPRIATELY AND IS ABLE TO MAKE HIS NEEDS KNOWN.
[2024-12-22 04:20] LABS: BASOPHILS ABSOLUTE AUTO 0.04 K/mm3 (0.00-0.23); BASOPHILS PERCENT AUTO 1 % (0-2); EOSINOPHILS ABSOLUTE AUTO 0.14 K/mm3 (0.00-0.68); EOSINOPHILS PERCENT AUTO 2 % (0-6); Hematocrit 42.9 % (37.0-53.0); Hemoglobin 14.8 g/dL (13.5-17.5); IMMATURE GRAN ABSOLUTE AUTO 0.02 K/mm3 (0.00-0.10); IMMATURE GRAN PERCENT AUTO 0 % (0-1); LYMPHOCYTES ABSOLUTE AUTO 1.97 K/mm3 (0.84-5.20); LYMPHOCYTES PERCENT AUTO 24 % (21-46); MONOCYTES ABSOLUTE AUTO 0.68 K/mm3 (0.16-1.47); MONOCYTES PERCENT AUTO 8 % (4-13); Mean Corpuscular HGB Conc 34.5 g/dL (31.5-36.5); Mean Corpuscular Volume 86 fL (80-100); NEUTROPHILS ABSOLUTE AUTO 5.45 K/mm3 (1.96-9.15); NEUTROPHILS PERCENT AUTO 66 % (41-73); NRBC ABSOLUTE 0.00 K/mm3 (0.00-0.02); NRBC Auto 0.0 /100 WBC (0.0-0.2); Platelet Count 246 K/mm3 (150-400); RDW Coefficient Variation 12.6 % (11.7-14.2); RDW Standard Deviation 39.7 fL (35.1-46.3)
[2024-12-22 04:39] LABS: Anion Gap 8.0 mmol/L (3-11); Blood Urea Nitrogen 20.0 mg/dL (8-24); CO2, Blood 25.0 mmol/L (21-32); Calcium, Blood 9.0 mg/dL (8.5-10.1); Chloride, Blood 104.0 mmol/L (98-108); Creatinine, Blood 0.86 mg/dL (0.60-1.20); Glucose, Blood 155.0 mg/dL (70-99); Potassium, Blood 4.2 mmol/L (3.5-5.5); Sodium, Blood 133.0 mmol/L (136-145)
[2024-12-22] MEDS ORDERED: Insulin Human Lispro 100 Units/ML 3ML Syringe SC SCH (07:30)
[2024-12-22 08:11] VITALS: BP 139/83
[2024-12-22] MEDS ORDERED: Insulin Glargine 100 Unit/ML 3 ML SYR SC SCH (09:00)
[2024-12-22] MEDS ORDERED: Enoxaparin 40 MG/0.4 ML SYR SC SCH (09:00)
[2024-12-22] MEDS ORDERED: LOSA25 PO (12:01)
[2024-12-22] MEDS ORDERED: BUPR150ER PO (12:01)
[2024-12-22] MEDS ORDERED: ASPI81CH PO (12:01)
[2024-12-22] MEDS ORDERED: FAMO20 PO ×2 (12:02)
[2024-12-22] MEDS ORDERED: METO25ER PO (12:02)
[2024-12-22 12:55] VITALS: BP 145/77
--- NOTE | 2024-12-22 13:00 | NUR ---
PT IS A&Ox4 AND ABLE TO MAKE NEEDS KNOWN. HE IS ON RA W/O2 SATS > 92%. HE IS INDEPENDENT W/AMBULATION. NO C/O CP OR NAUSEA THIS SHIFT. HE DISCHARGED HOME W/SIGNIFICANT OTHER.
== END 2024-12-22 12:30 | disposition home or self-care (01) ==
LOC: ER 13:39 → PCU 13:40
PROVIDERS: Student in an Organized Health Care Education/Training Program; ADMIT Hospitalist
DX: R10.13 Epigastric pain (principal); R07.89 Other chest pain; R79.89 Other specified abnormal findings of blood chemistry; I11.0 Hypertensive heart disease with heart failure; I50.21 Acute systolic (congestive) heart failure; E11.65 Type 2 diabetes mellitus with hyperglycemia; E78.5 Hyperlipidemia, unspecified; N40.0 Benign prostatic hyperplasia without lower urinary tract symptoms; F17.210 Nicotine dependence, cigarettes, uncomplicated; Z79.82 Long term (current) use of aspirin; Z79.4 Long term (current) use of insulin; Z79.899 Other long term (current) drug therapy
CPT/HCPCS: 36415; 71045; 80048; 80053; 82947; 83036; 84484; 85025; 93005; 93010; 96374; 99285-25; A9270; G0378; J1815; J2270

== ENCOUNTER 2024-12-28 00:36 | Emergency (ER) | payer OTHER ==
[~2024-12-28] VITALS: Ht 167.6 cm; Wt 72.6 kg
[~2024-12-28 00:36] MED LIST changes: +FAMO20 PO
[2024-12-28 00:51] VITALS: BP 179/94
[2024-12-28 00:52] LABS: BASOPHILS ABSOLUTE AUTO 0.06 K/mm3 (0.00-0.23); BASOPHILS PERCENT AUTO 1 % (0-2); EOSINOPHILS ABSOLUTE AUTO 0.13 K/mm3 (0.00-0.68); EOSINOPHILS PERCENT AUTO 2 % (0-6); Hematocrit 31.2 % (37.0-53.0); Hemoglobin 10.7 g/dL (13.5-17.5); IMMATURE GRAN ABSOLUTE AUTO 0.01 K/mm3 (0.00-0.10); IMMATURE GRAN PERCENT AUTO 0 % (0-1); LYMPHOCYTES ABSOLUTE AUTO 1.43 K/mm3 (0.84-5.20); LYMPHOCYTES PERCENT AUTO 20 % (21-46); MONOCYTES ABSOLUTE AUTO 0.56 K/mm3 (0.16-1.47); MONOCYTES PERCENT AUTO 8 % (4-13); Mean Corpuscular HGB Conc 34.3 g/dL (31.5-36.5); Mean Corpuscular Volume 89 fL (80-100); NEUTROPHILS ABSOLUTE AUTO 5.11 K/mm3 (1.96-9.15); NEUTROPHILS PERCENT AUTO 70 % (41-73); NRBC ABSOLUTE 0.00 K/mm3 (0.00-0.02); NRBC Auto 0.0 /100 WBC (0.0-0.2); Platelet Count 231 K/mm3 (150-400); RDW Coefficient Variation 12.6 % (11.7-14.2); RDW Standard Deviation 40.8 fL (35.1-46.3)
[2024-12-28 01:17] LABS: Alanine Aminotransfer (ALT/SGP 28.0 U/L (12-78); Albumin, Blood 3.4 g/dL (3.4-5.0); Albumin/Globulin Ratio 1.3 (0.8-1.8); Anion Gap 9.0 mmol/L (3-11); Aspartate Aminotrans (AST/SGOT 29.0 U/L (12-37); Bilirubin, Total 0.5 mg/dL (0.1-1.0); Blood Urea Nitrogen 27.0 mg/dL (8-24); CO2, Blood 25.0 mmol/L (21-32); Calcium, Blood 7.9 mg/dL (8.5-10.1); Chloride, Blood 109.0 mmol/L (98-108); Creatinine, Blood 0.88 mg/dL (0.60-1.20); Globulin, Blood 2.7 g/dL (2.2-4.0); Glucose, Blood 127.0 mg/dL (70-99); Potassium, Blood 3.1 mmol/L (3.5-5.5); Sodium, Blood 140.0 mmol/L (136-145); Total Protein, Blood 6.1 g/dL (6.4-8.2)
== END 2024-12-28 01:02 | disposition left against medical advice (07) ==
LOC: ER 00:36
PROVIDERS: Emergency Medicine
DX: R10.13 Epigastric pain (principal); R07.9 Chest pain, unspecified; I10 Essential (primary) hypertension; E11.9 Type 2 diabetes mellitus without complications; E78.5 Hyperlipidemia, unspecified; F17.210 Nicotine dependence, cigarettes, uncomplicated
CPT/HCPCS: 80053; 83690; 84484; 85025; 93005; 93010; 99285-25

== ENCOUNTER 2025-01-01 14:12 | Emergency (ER) | payer OTHER ==
[~2025-01-01] VITALS: Ht 180.3 cm; Wt 74.8 kg
[2025-01-01 14:18] VITALS: BP 181/116
[2025-01-01] MEDS ORDERED: NS 1,000 ML IV SCH (14:30)
[2025-01-01] MEDS ORDERED: Ondansetron HCl 2 MG / ML 2ML Vial IV ONE (14:30)
[2025-01-01 14:39] LABS: BASOPHILS ABSOLUTE AUTO 0.04 K/mm3 (0.00-0.23); BASOPHILS PERCENT AUTO 0 % (0-2); EOSINOPHILS ABSOLUTE AUTO 0.03 K/mm3 (0.00-0.68); EOSINOPHILS PERCENT AUTO 0 % (0-6); Hematocrit 38.8 % (37.0-53.0); Hemoglobin 13.5 g/dL (13.5-17.5); IMMATURE GRAN ABSOLUTE AUTO 0.02 K/mm3 (0.00-0.10); IMMATURE GRAN PERCENT AUTO 0 % (0-1); LYMPHOCYTES ABSOLUTE AUTO 1.28 K/mm3 (0.84-5.20); LYMPHOCYTES PERCENT AUTO 12 % (21-46); MONOCYTES ABSOLUTE AUTO 0.63 K/mm3 (0.16-1.47); MONOCYTES PERCENT AUTO 6 % (4-13); Mean Corpuscular HGB Conc 34.8 g/dL (31.5-36.5); Mean Corpuscular Volume 86 fL (80-100); NEUTROPHILS ABSOLUTE AUTO 8.67 K/mm3 (1.96-9.15); NEUTROPHILS PERCENT AUTO 81 % (41-73); NRBC ABSOLUTE 0.00 K/mm3 (0.00-0.02); NRBC Auto 0.0 /100 WBC (0.0-0.2); Platelet Count 328 K/mm3 (150-400); RDW Coefficient Variation 12.6 % (11.7-14.2); RDW Standard Deviation 39.4 fL (35.1-46.3)
[2025-01-01 15:13] LABS: Alanine Aminotransfer (ALT/SGP 28.0 U/L (12-78); Albumin, Blood 3.7 g/dL (3.4-5.0); Albumin/Globulin Ratio 1.0 (0.8-1.8); Anion Gap 9.0 mmol/L (3-11); Aspartate Aminotrans (AST/SGOT 17.0 U/L (12-37); Bilirubin, Total 0.7 mg/dL (0.1-1.0); Blood Urea Nitrogen 19.0 mg/dL (8-24); CO2, Blood 29.0 mmol/L (21-32); Calcium, Blood 9.7 mg/dL (8.5-10.1); Chloride, Blood 103.0 mmol/L (98-108); Creatinine, Blood 0.88 mg/dL (0.60-1.20); Globulin, Blood 3.6 g/dL (2.2-4.0); Glucose, Blood 162.0 mg/dL (70-99); Potassium, Blood 3.5 mmol/L (3.5-5.5); Sodium, Blood 137.0 mmol/L (136-145); Total Protein, Blood 7.3 g/dL (6.4-8.2)
[2025-01-02] MEDS ORDERED: OMEP20ER PO (00:45)
[2025-01-02] MEDS ORDERED: SUCR1 PO (00:45)
== END 2025-01-01 15:58 | disposition home or self-care (01) ==
LOC: ER 14:12
PROVIDERS: Student in an Organized Health Care Education/Training Program
DX: R10.13 Epigastric pain (principal); I10 Essential (primary) hypertension; E11.9 Type 2 diabetes mellitus without complications; E78.5 Hyperlipidemia, unspecified; F17.210 Nicotine dependence, cigarettes, uncomplicated; Z79.82 Long term (current) use of aspirin; Z79.4 Long term (current) use of insulin; Z79.899 Other long term (current) drug therapy
CPT/HCPCS: 74177; 80053; 83690; 85025; 99284-25; J7030; Q9967

== ENCOUNTER 2025-01-01 23:06 | Emergency (ER) | payer OTHER ==
[~2025-01-01] VITALS: Ht 180.3 cm; Wt 74.8 kg
[2025-01-01] MEDS ORDERED: Ketorolac Tromethamine 15mg Vial IM ONE (23:45)
[2025-01-01] MEDS ORDERED: Lidocaine 2% Viscous Soln 15 ML UDC PO ONE (23:45)
[2025-01-02 00:18] VITALS: BP 162/87
[2025-01-02] MEDS ORDERED: OMEP20ER PO (00:45)
[2025-01-02] MEDS ORDERED: SUCR1 PO (00:45)
== END 2025-01-02 00:56 | disposition home or self-care (01) ==
LOC: ER 23:06
DX: R10.13 Epigastric pain (principal); R11.2 Nausea with vomiting, unspecified; I11.0 Hypertensive heart disease with heart failure; I50.9 Heart failure, unspecified; E78.5 Hyperlipidemia, unspecified; E11.9 Type 2 diabetes mellitus without complications; F17.210 Nicotine dependence, cigarettes, uncomplicated; Z79.82 Long term (current) use of aspirin; Z79.899 Other long term (current) drug therapy; Z79.4 Long term (current) use of insulin
CPT/HCPCS: 74177; 80053; 83690; 85025; 96372; 99283; 99284-25; A9270; J1885; J7030; Q9967

== ENCOUNTER 2025-01-03 00:47 | Emergency (ER) | payer OTHER ==
[~2025-01-03] VITALS: Ht 170.2 cm; Wt 72.6 kg
[~2025-01-03 00:47] MED LIST changes: +OMEP20ER PO
[2025-01-03] MEDS ORDERED: Sucralfate 1000MG / 10ML UD BTL PO ONE (01:25)
[2025-01-03] MEDS ORDERED: Pantoprazole Sodium 40 MG Injection IV ONE (01:25)
[2025-01-03] MEDS ORDERED: Ondansetron HCl 2 MG / ML 2ML Vial IV ONE (01:25)
[2025-01-03 01:31] LABS: BASOPHILS ABSOLUTE AUTO 0.03 K/mm3 (0.00-0.23); BASOPHILS PERCENT AUTO 0 % (0-2); EOSINOPHILS ABSOLUTE AUTO 0.01 K/mm3 (0.00-0.68); EOSINOPHILS PERCENT AUTO 0 % (0-6); Hematocrit 43.5 % (37.0-53.0); Hemoglobin 15.0 g/dL (13.5-17.5); IMMATURE GRAN ABSOLUTE AUTO 0.02 K/mm3 (0.00-0.10); IMMATURE GRAN PERCENT AUTO 0 % (0-1); LYMPHOCYTES ABSOLUTE AUTO 1.29 K/mm3 (0.84-5.20); LYMPHOCYTES PERCENT AUTO 14 % (21-46); MONOCYTES ABSOLUTE AUTO 0.60 K/mm3 (0.16-1.47); MONOCYTES PERCENT AUTO 6 % (4-13); Mean Corpuscular HGB Conc 34.5 g/dL (31.5-36.5); Mean Corpuscular Volume 86 fL (80-100); NEUTROPHILS ABSOLUTE AUTO 7.62 K/mm3 (1.96-9.15); NEUTROPHILS PERCENT AUTO 80 % (41-73); NRBC ABSOLUTE 0.00 K/mm3 (0.00-0.02); NRBC Auto 0.0 /100 WBC (0.0-0.2); Platelet Count 332 K/mm3 (150-400); RDW Coefficient Variation 12.2 % (11.7-14.2); RDW Standard Deviation 38.4 fL (35.1-46.3)
[2025-01-03 02:00] LABS: Alanine Aminotransfer (ALT/SGP 22.0 U/L (12-78); Albumin, Blood 3.8 g/dL (3.4-5.0); Albumin/Globulin Ratio 1.1 (0.8-1.8); Anion Gap 9.0 mmol/L (3-11); Aspartate Aminotrans (AST/SGOT 14.0 U/L (12-37); Bilirubin, Total 0.6 mg/dL (0.1-1.0); Blood Urea Nitrogen 22.0 mg/dL (8-24); CO2, Blood 28.0 mmol/L (21-32); Calcium, Blood 9.3 mg/dL (8.5-10.1); Chloride, Blood 101.0 mmol/L (98-108); Creatinine, Blood 0.92 mg/dL (0.60-1.20); Globulin, Blood 3.6 g/dL (2.2-4.0); Glucose, Blood 231.0 mg/dL (70-99); Potassium, Blood 3.9 mmol/L (3.5-5.5); Sodium, Blood 134.0 mmol/L (136-145); Total Protein, Blood 7.4 g/dL (6.4-8.2)
[2025-01-03 02:18] LABS: pH Blood Venous 7.47 (7.34-7.37)
[2025-01-03 02:45] VITALS: BP 171/104
== END 2025-01-03 02:49 | disposition home or self-care (01) ==
LOC: ER 00:47
PROVIDERS: Student in an Organized Health Care Education/Training Program
DX: K29.70 Gastritis, unspecified, without bleeding (principal); E11.9 Type 2 diabetes mellitus without complications; F17.210 Nicotine dependence, cigarettes, uncomplicated
CPT/HCPCS: 80053; 82010; 82803; 85025; 96374; 96375; 99284-25; A9270; J2405; J2470

== ENCOUNTER → 2025-02-16 | Outpatient (CLI) | payer OTHER ==
[2025-02-16 17:23] LABS: BASOPHILS ABSOLUTE AUTO 0.03 K/mm3 (0.00-0.23); BASOPHILS PERCENT AUTO 0 % (0-2); EOSINOPHILS ABSOLUTE AUTO 0.01 K/mm3 (0.00-0.68); EOSINOPHILS PERCENT AUTO 0 % (0-6); Hematocrit 46.0 % (37.0-53.0); Hemoglobin 15.9 g/dL (13.5-17.5); IMMATURE GRAN ABSOLUTE AUTO 0.03 K/mm3 (0.00-0.10); IMMATURE GRAN PERCENT AUTO 0 % (0-1); LYMPHOCYTES ABSOLUTE AUTO 1.34 K/mm3 (0.84-5.20); LYMPHOCYTES PERCENT AUTO 11 % (21-46); MONOCYTES ABSOLUTE AUTO 0.76 K/mm3 (0.16-1.47); MONOCYTES PERCENT AUTO 6 % (4-13); Mean Corpuscular HGB Conc 34.6 g/dL (31.5-36.5); Mean Corpuscular Volume 87 fL (80-100); NEUTROPHILS ABSOLUTE AUTO 9.92 K/mm3 (1.96-9.15); NEUTROPHILS PERCENT AUTO 82 % (41-73); NRBC ABSOLUTE 0.00 K/mm3 (0.00-0.02); NRBC Auto 0.0 /100 WBC (0.0-0.2); Platelet Count 343 K/mm3 (150-400); RDW Coefficient Variation 11.9 % (11.7-14.2); RDW Standard Deviation 38.1 fL (35.1-46.3)
[2025-02-16 17:37] LABS: Alanine Aminotransfer (ALT/SGP 14.0 U/L (12-78); Albumin, Blood 3.6 g/dL (3.4-5.0); Albumin/Globulin Ratio 0.9 (0.8-1.8); Anion Gap 14.0 mmol/L (3-11); Aspartate Aminotrans (AST/SGOT 8.0 U/L (12-37); Bilirubin, Total 0.6 mg/dL (0.1-1.0); Blood Urea Nitrogen 27.0 mg/dL (8-24); CO2, Blood 28.0 mmol/L (21-32); Calcium, Blood 10.2 mg/dL (8.5-10.1); Chloride, Blood 100.0 mmol/L (98-108); Creatinine, Blood 0.99 mg/dL (0.60-1.20); Globulin, Blood 4.2 g/dL (2.2-4.0); Glucose, Blood 212.0 mg/dL (70-99); Potassium, Blood 4.5 mmol/L (3.5-5.5); Sodium, Blood 137.0 mmol/L (136-145); Total Protein, Blood 7.8 g/dL (6.4-8.2)
== END | disposition home or self-care (01) ==
LOC: LAB SHORT 17:19 → LAB 17:19
PROVIDERS: Physician Assistant
DX: R73.9 Hyperglycemia, unspecified (principal)
CPT/HCPCS: 80053; 83690; 85025